=== PATIENT | male | born 1985 | race Hispanic/Latino ===

== ENCOUNTER 2023-04-13 20:04 | Emergency (ER) | payer BC ==
[2023-04-13] MEDS ORDERED: Dexamethasone 10 MG/ML VIAL ONE (20:53)
[2023-04-13] MEDS ORDERED: Lidocaine 1% MPF 2 ML VIAL ONE (20:53)
[2023-04-13] MEDS ORDERED: cefTRIAXone (ROCEPHIN) 1 GM VIAL ONE (20:53)
== END 2023-04-13 21:32 | disposition home or self-care (01) ==
LOC: ERS 20:04
DX: H65.03 Acute serous otitis media, bilateral (principal); H73.93 Unspecified disorder of tympanic membrane, bilateral; J02.9 Acute pharyngitis, unspecified
CPT/HCPCS: 96372; 99282; J0696; J1100